=== PATIENT | male | born 1980 | race Caucasian/White ===

== ENCOUNTER 2021-06-11 07:22 | Emergency (ER) | payer MEDICAID ==
[~2021-06-11] VITALS: Ht 172.7 cm; Wt 89.8 kg
[2021-06-11] MEDS ORDERED: ondansetron 4mg rapidly disintigrating tab PO ONE (09:10)
[2021-06-11] MEDS ORDERED: dicyclomine 10 MG capsule PO ONE (09:10)
[2021-06-11] MEDS ORDERED: DICY10CA88 PO (09:13)
[2021-06-11] MEDS ORDERED: PROM12.512 PO (09:14)
[2021-06-11 10:02] VITALS: BP 139/83
== END 2021-06-11 10:05 | disposition home or self-care (01) ==
LOC: ER 07:24
DX: A08.4 Viral intestinal infection, unspecified (principal); Z20.822 Contact with and (suspected) exposure to COVID-19; Z88.8 Allergy status to other drugs, medicaments and biological substances; Z79.899 Other long term (current) drug therapy
CPT/HCPCS: 87635; 99283; C9803

== ENCOUNTER 2023-01-01 07:03 | Emergency (ER) | payer MEDICAID ==
[~2023-01-01] VITALS: Ht 172.7 cm; Wt 123.4 kg
[~2023-01-01 07:03] MED LIST: DICY10CA88 PO; PROM12.512 PO
[2023-01-01 07:39] VITALS: BP 147/88; TEMP 99.1
[2023-01-01] MEDS ORDERED: albuterol 2.5 MG/3 ML nebule NEB ONE (09:15)
[2023-01-01] MEDS ORDERED: ALBU18HF2 INH (09:17)
[2023-01-01] MEDS ORDERED: PRED20TA PO ×2 (09:17→10:26)
[2023-01-01] MEDS ORDERED: GUAI120015 PO ×2 (09:20→10:26)
[2023-01-01] MEDS ORDERED: SODI30SP3 BOTHNARES ×2 (09:21→10:26)
[2023-01-01 09:29] VITALS: PULSE 72; RESP 18; O2SAT 95
[2023-01-01 09:34] VITALS: PULSE 64; RESP 20; O2SAT 99
[2023-01-01] MEDS ORDERED: ALBU6.7H14 INH (10:26)
== END 2023-01-01 09:40 | disposition home or self-care (01) ==
LOC: ER 07:04
DX: J20.9 Acute bronchitis, unspecified (principal); Z20.822 Contact with and (suspected) exposure to COVID-19; F17.200 Nicotine dependence, unspecified, uncomplicated; Z88.0 Allergy status to penicillin; Z79.899 Other long term (current) drug therapy
CPT/HCPCS: 87502; 87503; 87811; 94640; 94760; 99283